=== PATIENT | female | born 1995 | race American Indian/Alaskan Native ===

== ENCOUNTER 2020-09-28 10:29 | Emergency (ER) | payer SELFPAY ==
[2020-09-28 11:39] VITALS: BP 106/67
[2020-09-28 14:09] LABS: Bilirubin,Urine NEG (Negative); Blood,Urine NEG (Negative); Color,Urine Amber (Yellow); Mucus,Urine 3+ /HPF
[2020-09-28 14:22] LABS: HCG Qualitative,Urine Positive (Negative)
== END 2020-09-28 11:40 | disposition left against medical advice (07) ==
LOC: ED 10:29
DX: Z32.00 Encounter for pregnancy test, result unknown (principal); Z53.21 Procedure and treatment not carried out due to patient leaving prior to being seen by health care provider
CPT/HCPCS: 81001; 81025

== ENCOUNTER 2020-12-09 12:06 | Inpatient (IN) | payer OTHER ==
[2020-12-09] MEDS ORDERED: LACTATED RINGERS 1,000 ML ONE (12:15)
[2020-12-09] MEDS ORDERED: LACTATED RINGERS 500 ML IV ONE (12:23)
[2020-12-09 12:58] LABS: Basophils # (Auto) 0.2 K/mm3 (0.0-0.1); Basophils % (Auto) 1.7 % (0.0-1.8); Eosinophils % (Auto) 0.4 % (0.0-4.3); Hematocrit 37.3 % (30.3-42.9); Hemoglobin 12.5 gm/dl (10.1-14.3); Lymphocytes # (Auto) 2.3 K/mm3 (1.2-5.4); Lymphocytes % (Auto) 19.8 % (13.4-35.0); Mean Corpuscular HGB Conc 34 % (30-34); Mean Corpuscular Volume 85 fl (79-97); Monocytes # (Auto) 0.9 K/mm3 (0.0-0.8); Platelet Count 395 K/mm3 (140-440); Red Blood Count 4.42 M/mm3 (3.65-5.03); Red Cell Distribution Width 13.3 % (13.2-15.2)
[2020-12-09] MEDS ORDERED: TERBUTALINE 1 MG/1 ML INJ SUB-Q SCH (13:00)
[2020-12-09] MEDS ORDERED: LIDOCAINE (2%) 20 MG/1 ML VIAL 20 ML MDV INFILTRATI NR (13:12)
[2020-12-09] MEDS ORDERED: fentaNYL 100 MCG/2 ML INJ IV PRN (13:12)
[2020-12-09] MEDS ORDERED: ACETAMINOPHEN 325 MG TAB PO PRN (13:12)
[2020-12-09] MEDS ORDERED: ePHEDrine SULFATE 50 MG/1 ML INJ IV PRN ×2 (13:12→14:41)
[2020-12-09] MEDS ORDERED: miSOPROStol 200 MCG TAB PR PRN (13:12)
[2020-12-09] MEDS ORDERED: METHYLERGONOVINE MALEATE 0.2 MG/ML VIAL IM PRN (13:12)
[2020-12-09] MEDS ORDERED: LOPERAMIDE 2 MG CAP PO PRN (13:12)
[2020-12-09] MEDS ORDERED: BUTORPHANOL 2 MG/1 ML INJ IV PRN (13:12)
[2020-12-09] MEDS ORDERED: OXYTOCIN 10 UNIT/1 ML INJ IM PRN (13:12)
[2020-12-09] MEDS ORDERED: MINERAL OIL 30 ML ORAL LIQD PO PRN (13:12)
[2020-12-09] MEDS ORDERED: CARBOPROST TROMETHAMINE 250 MCG/1 ML INJ IM PRN (13:12)
[2020-12-09] MEDS ORDERED: TERBUTALINE 1 MG/1 ML INJ SUB-Q PRN (13:12)
[2020-12-09] MEDS ORDERED: AMPICILLIN/NS 2 GM/100 ML 2 GM/100 ML BAG IV ONE ×2 (13:23→14:00)
[2020-12-09 13:34] LABS: HCG,Quantitative 43143 mIU/mL (0-4)
[2020-12-09] MEDS ORDERED: OXYTOCIN DRIP 30 UNITS/500 ML BAG IV SCH ×2 (14:00)
[2020-12-09] MEDS ORDERED: ONDANSETRON 4 MG/2 ML INJ IV PRN ×2 (14:41→17:14)
[2020-12-09] MEDS ORDERED: diphenhydrAMINE 50 MG/ML VIAL IV PRN (14:41)
[2020-12-09] MEDS ORDERED: NalbUPHINE 10 MG/1 ML INJ IV PRN (14:41)
[2020-12-09] MEDS ORDERED: NALOXONE 2 MG/2 ML INJ IV PRN (14:41)
[2020-12-09] MEDS ORDERED: fentaNYL-BUPIV 2 MCG/ML-0.125% 200 MCG/100 ML BAG EPIDURAL SCH (15:00)
--- NOTE | 2020-12-09 15:07 | Anesthesia Consultation ---
Anesthesia Consult and Med Hx Date of service: 12/09/20 - Airway Anesthetic Teeth Evaluation: Good ROM Head & Neck: Adequate Mental/Hyoid Distance: Adequate Mallampati Class: Class I Intubation Access Assessment: Good - Pulmonary Exam CTA: Yes - Cardiac Exam Cardiac Exam: RRR - Pre-Operative Health Status ASA Pre-Surgery Classification: ASA2 Proposed Anesthetic Plan: Epidural - Pulmonary Hx Smoking: No Hx Asthma: No COPD: No Hx Pneumonia: No Hx Sleep Apnea: No - Cardiovascular System Hx Hypertension: No Hx Heart Attack/AMI: No Hx Angina: No - Central Nervous System Hx Seizures: No Hx Psychiatric Problems: No - Gastrointestinal Hx Gastroesophageal Reflux Disease: No - Endocrine Hx Renal Disease: No Hx End Stage Renal Disease: No Hx Liver Disease: No Hx Insulin Dependent Diabetes: No Hx Non-Insulin Dependent Diabetes: No Hx Hypothyroidism: No Hx Hyperthyroidism: No - Hematic Hx Anemia: No Hx Sickle Cell Disease: No - Other Systems Hx Alcohol Use: No
--- NOTE | 2020-12-09 15:08 | Progress Note ---
Labor Epidural - Labor Epidural Performed by:: JOSE STANLEY (Jose Prado [facility]) Procedure: Patient is requesting epidural for labor and pain. H&P, labs were reviewed. Patient IDed, H&P reviewed, all questions and concerns were answered, and consent was signed. Timeout was performed at bedside. Patient in sitting position. Sterile prep and drape was performed. 3ml of 1% lidocaine skin wheal at L[3]- L [4]. 18-gauge FClubtead epidural needle was advanced to loss of resistance with air technique 6cm. Negative CSF negative blood. Epidural catheter advanced to [11] centimeters. [negative] Aspiration [negative] test dose. Sterile dressing applied. Patient tolerated procedure.
[2020-12-09] MEDS ORDERED: LACTATED RINGERS 250 ML IV SOLN IV ONE (16:00)
[2020-12-09] MEDS ORDERED: BICITRA ORAL LIQD 30ML ONE (16:24)
[2020-12-09] MEDS ORDERED: METOCLOPRAMIDE 10 MG/2 ML INJ ONE (16:24)
[2020-12-09] MEDS ORDERED: FAMOTIDINE 20 MG/2 ML INJ IV ONE (16:25)
[2020-12-09] MEDS ORDERED: LIDOCAINE 2%/EPINEPHRINE 1:200,000 VIAL (20 ML) INFILTRATI ONE (16:33)
[2020-12-09] MEDS ORDERED: LANOLIN/ZINC/DIMETHICONE (LANSINOH) 7 GM TP PRN (17:14)
[2020-12-09] MEDS ORDERED: KETOROLAC 30 MG/1 ML INJ IV PRN (17:14)
[2020-12-09] MEDS ORDERED: MAGNESIUM HYDROXIDE (MOM) ORAL LIQD UDC PO PRN (17:14)
[2020-12-09] MEDS ORDERED: PROMETHAZINE 25 MG RECT SUPP PR PRN (17:14)
[2020-12-09] MEDS ORDERED: PROMETHAZINE 25 MG TAB PO PRN (17:14)
[2020-12-09] MEDS ORDERED: WITCH HAZEL/ GLYCERIN PAD TP PRN (17:14)
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
--- NOTE | 2020-12-09 17:30 | Procedure Note ---
OB Delivery Note - Delivery Date of Delivery: 12/09/20 Surgeon: SAAR GALLARDO Estimated blood loss: 300cc - Vaginal Delivery position: OA Intrapartum events: none, no care, labor-<37 weeks, PROM->1hr before delivery, meconium Delivery induction: none Delivery monitor: external FHT, external uterine Route of delivery: Delivery placenta: spontaneous, expressed Delivery cord: 3 umbilical vessels Episiotomy: none Delivery laceration: none Anesthesia: epidural - A at 1 minute: 8 at 5 minutes: 9 Infant Gender: Female
[2020-12-09 18:29] LABS: Hemoglobin 12.1 gm/dl (10.1-14.3); Mean Corpuscular HGB Conc 34 % (30-34); Mean Corpuscular Volume 85 fl (79-97); Platelet Count 354 K/mm3 (140-440); Red Blood Count 4.26 M/mm3 (3.65-5.03); Red Cell Distribution Width 13.3 % (13.2-15.2)
[2020-12-09] MEDS: IBUPROFEN 600 MG TAB PO SCH (19:38)
[2020-12-09 20:09] LABS: Bacteria,Urine 2+ /HPF (Negative); Bilirubin,Urine NEG (Negative); Blood,Urine MOD (Negative); Color,Urine Amber (Yellow); Mucus,Urine FEW /HPF
[2020-12-09 20:11] LABS: Amphetamine Screen,Urine Negative; Benzodiazepines Screen,Urine Negative; Cannabinoid Screen,Urine Negative; Cocaine Screen,Urine Negative; Methadone Screen,Urine Negative; Opiate Screen,Urine Negative
[2020-12-09 20:12] LABS: WBC,Urine < 100.0 /HPF (0.0-6.0)
[2020-12-09] MEDS ORDERED: MAGNESIUM SULFATE 4 GM/100 ML BAG IV ONE (21:05)
[2020-12-09] MEDS: LACTATED RINGERS 1,000 ML IV SCH (21:43)
[2020-12-09] MEDS ORDERED: MAGNESIUM SULFATE 40GM/1000ML 40 GM/1,000 ML BAG IV SCH (22:00)
[2020-12-09] MEDS: HYDROcodone/ACETAMINOPHEN 5-325 MG TAB PO PRN (22:10)
[2020-12-10] MEDS: IBUPROFEN 600 MG TAB PO SCH ×4 (00:35→21:14)
[2020-12-10 04:24] LABS: Hematocrit 32.9 % (30.3-42.9); Hemoglobin 11.2 gm/dl (10.1-14.3)
[2020-12-10] MEDS: HYDROcodone/ACETAMINOPHEN 5-325 MG TAB PO PRN (06:46)
[2020-12-10] MEDS: LACTATED RINGERS 1,000 ML IV SCH (06:47)
[2020-12-10] MEDS: PRENATAL VIT27-FE FUMARATE-FOLIC ACID VIT TAB PO SCH (09:47)
--- NOTE | 2020-12-10 12:13 | Post Anesthesia Evaluation ---
- Post Anesthesia Evaluation Patient Participated: Yes Airway Patent: Yes Stable Respiratory Function: Yes Nausea/Vomiting: No Temp > 96.8F: Yes Pain Manageable: Yes Adequeate Hydration: Yes Anesthesia Complications: No Block Receding Appropriately: Yes Patient on Ventilator: No
--- NOTE | 2020-12-10 13:53 | Progress Note ---
Assessment and Plan - Patient Problems (1) No care in current Current Visit: Yes Status: Acute (2) Active labor Current Visit: Yes Status: Acute Qualifiers: Fetus number: single or unspecified fetus Qualified Code(s): O60.10X0 - labor with delivery, unspecified trimester, not applicable or unspecified (3) Status post vaginal delivery Current Visit: Yes Status: Acute (4) Labile blood pressure Current Visit: Yes Status: Acute Plan to address problem: MgSO4 protocol to run its course. Otherwise stable. Subjective - Subjective Date of service: 12/10/20 Principal diagnosis: Status post day 1 Interval history: Active and painful contractions. g2, P0. 35+ wks. Patient reports: appetite normal, pain well controlled, other (Under MgSO4 protocol for labile BPsfollowing delivery.) : doing well, in NICU Objective - Vital Signs Latest vital signs: Vital Signs Temp Pulse Resp BP BP Pulse Ox Pulse Ox 12/10/20 13:49 62 99 12/10/20 13:47 65 141/72 12/10/20 13:44 64 99 12/10/20 13:39 60 99 12/10/20 13:34 59 L 99 12/10/20 13:29 60 99 12/10/20 13:24 62 99 12/10/20 13:19 60 99 12/10/20 13:17 58 L 132/66 12/10/20 13:14 62 99 12/10/20 13:09 59 L 99 12/10/20 13:04 59 L 99 12/10/20 12:59 58 L 99 12/10/20 12:54 69 100 12/10/20 12:49 61 99 12/10/20 12:47 60 147/83 12/10/20 12:44 58 L 99 12/10/20 12:39 67 100 12/10/20 12:34 63 100 12/10/20 12:29 55 L 99 12/10/20 12:24 58 L 98 12/10/20 12:19 74 98 12/10/20 12:17 65 134/85 12/10/20 12:14 60 99 12/10/20 12:09 60 99 12/10/20 12:04 58 L 99 12/10/20 11:59 59 L 99 12/10/20 11:54 54 L 99 12/10/20 11:49 59 L 99 12/10/20 11:47 57 L 128/86 12/10/20 11:44 59 L 99 12/10/20 11:39 60 99 12/10/20 11:37 71 127/90 12/10/20 11:34 60 98 12/10/20 11:29 65 98 12/10/20 11:24 60 99 12/10/20 11:19 60 99 12/10/20 11:17 55 L 150/89 12/10/20 11:14 58 L 99 12/10/20 11:09 60 99 12/10/20 11:04 54 L 99 12/10/20 10:59 53 L 99 12/10/20 10:54 58 L 97 12/10/20 10:49 55 L 98 12/10/20 10:47 54 L 133/80 12/10/20 10:44 59 L 98 12/10/20 10:39 57 L 98 12/10/20 10:34 64 99 12/10/20 10:29 71 99 12/10/20 10:24 64 100 12/10/20 10:19 62 98 12/10/20 10:17 54 L 135/93 12/10/20 10:14 57 L 100 12/10/20 10:09 56 L 99 12/10/20 10:04 76 98 12/10/20 09:59 83 98 12/10/20 09:58 100 12/10/20 09:54 54 L 99 12/10/20 09:52 97.6 F 56 L 12 126/83 99 12/10/20 09:49 78 100 12/10/20 09:47 54 L 126/83 12/10/20 09:46 65 126/83 12/10/20 09:44 61 97 12/10/20 09:39 60 100 12/10/20 09:34 55 L 98 12/10/20 09:29 52 L 98 12/10/20 09:24 55 L 99 12/10/20 09:19 58 L 100 12/10/20 09:14 60 99 12/10/20 09:09 54 L 99 12/10/20 09:04 62 99 12/10/20 08:59 60 98 12/10/20 08:54 62 98 12/10/20 08:52 51 L 136/73 12/10/20 08:49 55 L 97 12/10/20 08:44 54 L 99 12/10/20 08:39 53 L 98 12/10/20 08:34 48 L 118/66 98 12/10/20 08:29 61 99 12/10/20 08:24 57 L 99 12/10/20 08:19 54 L 98 12/10/20 08:14 61 98 12/10/20 08:09 60 98 12/10/20 08:04 52 L 131/64 99 12/10/20 07:59 63 99 12/10/20 07:54 60 98 12/10/20 07:49 63 99 12/10/20 07:44 58 L 99 12/10/20 07:39 62 98 12/10/20 07:34 54 L 140/63 99 12/10/20 07:29 60 99 12/10/20 07:24 58 L 99 12/10/20 07:19 61 98 12/10/20 07:14 61 98 12/10/20 07:09 65 98 12/10/20 07:04 55 L 116/65 99 12/10/20 06:59 59 L 99 12/10/20 06:54 61 99 12/10/20 06:49 70 100 12/10/20 06:44 58 L 98 12/10/20 06:39 67 100 12/10/20 06:34 75 142/89 99 12/10/20 06:29 76 99 12/10/20 06:24 68 99 12/10/20 06:19 59 L 98 12/10/20 06:14 62 98 12/10/20 06:09 64 98 12/10/20 06:04 60 132/76 97 12/10/20 05:59 76 98 12/10/20 05:54 63 97 12/10/20 05:49 62 98 12/10/20 05:44 57 L 98 12/10/20 05:39 57 L 97 12/10/20 05:34 59 L 133/82 94 12/10/20 05:29 62 99 12/10/20 05:24 62 97 12/10/20 05:19 71 97 12/10/20 05:14 69 98 12/10/20 05:09 65 98 12/10/20 05:04 55 L 119/70 98 12/10/20 04:59 63 97 12/10/20 04:54 62 97 12/10/20 04:49 58 L 97 12/10/20 04:44 60 97 12/10/20 04:39 55 L 98 12/10/20 04:34 51 L 134/73 98 12/10/20 04:29 58 L 100 12/10/20 04:24 56 L 99 12/10/20 04:19 54 L 99 12/10/20 04:14 58 L 98 12/10/20 04:09 57 L 98 12/10/20 04:04 67 137/76 97 12/10/20 03:59 64 97 12/10/20 03:54 67 97 12/10/20 03:49 66 98 12/10/20 03:44 68 98 12/10/20 03:39 60 98 12/10/20 03:35 62 151/77 12/10/20 03:34 62 98 12/10/20 03:29 63 98 12/10/20 03:24 68 97 12/10/20 03:19 64 98 12/10/20 03:14 63 98 12/10/20 03:09 57 L 99 12/10/20 03:04 63 147/85 99 12/10/20 02:59 77 98 12/10/20 02:57 20 12/10/20 02:54 69 99 12/10/20 02:49 78 98 12/10/20 02:44 61 97 12/10/20 02:39 61 97 12/10/20 02:34 54 L 140/77 92 12/10/20 02:29 56 L 97 12/10/20 02:24 61 98 12/10/20 02:19 57 L 97 12/10/20 02:14 61 98 12/10/20 02:09 57 L 98 12/10/20 02:04 55 L 131/75 94 12/10/20 01:59 59 L 98 12/10/20 01:54 58 L 97 12/10/20 01:49 54 L 98 12/10/20 01:44 53 L 97 12/10/20 01:39 65 99 12/10/20 01:34 58 L 128/75 93 12/10/20 01:29 58 L 97 12/10/20 01:24 60 97 12/10/20 01:19 59 L 98 12/10/20 01:14 60 97 12/10/20 01:09 57 L 98 12/10/20 01:04 54 L 133/73 93 12/10/20 00:59 58 L 98 12/10/20 00:54 59 L 97 12/10/20 00:49 52 L 98 12/10/20 00:44 55 L 97 12/10/20 00:39 60 98 12/10/20 00:34 55 L 135/71 97 12/10/20 00:29 63 97 12/10/20 00:24 60 97 12/10/20 00:19 61 97 12/10/20 00:14 62 97 12/10/20 00:09 56 L 98 12/10/20 00:04 54 L 127/70 94 12/10/20 00:00 98.7 F 18 12/09/20 23:59 59 L 98 12/09/20 23:54 60 98 12/09/20 23:49 63 98 12/09/20 23:44 60 99 12/09/20 23:39 63 98 12/09/20 23:34 68 123/84 99 12/09/20 23:29 59 L 99 12/09/20 23:24 58 L 99 12/09/20 23:19 64 98 12/09/20 23:14 56 L 100 12/09/20 23:09 69 99 12/09/20 23:04 69 131/78 98 12/09/20 22:59 62 98 12/09/20 22:54 64 98 12/09/20 22:49 73 98 12/09/20 22:44 70 98 12/09/20 22:39 65 97 12/09/20 22:34 66 97 12/09/20 22:32 71 121/78 12/09/20 22:29 65 99 12/09/20 22:24 61 97 12/09/20 22:19 59 L 98 12/09/20 22:17 63 129/76 12/09/20 22:14 60 98 12/09/20 22:10 20 12/09/20 22:09 66 98 12/09/20 22:04 73 97 12/09/20 22:03 71 161/67 12/09/20 22:02 72 94 12/09/20 21:59 106 H 98 12/09/20 21:54 64 98 12/09/20 21:49 63 98 12/09/20 21:47 57 L 141/87 12/09/20 21:44 54 L 98 12/09/20 21:39 57 L 98 12/09/20 21:34 53 L 98 12/09/20 21:32 49 L 150/92 12/09/20 21:29 56 L 98 12/09/20 21:24 53 L 99 12/09/20 21:19 52 L 99 12/09/20 21:17 53 L 149/94 12/09/20 21:14 58 L 98 12/09/20 21:09 57 L 98 12/09/20 21:04 53 L 98 12/09/20 21:02 52 L 147/89 12/09/20 20:59 58 L 97 12/09/20 20:54 55 L 98 12/09/20 20:49 53 L 98 12/09/20 20:47 52 L 145/90 12/09/20 20:44 50 L 99 12/09/20 20:39 68 98 12/09/20 20:34 57 L 98 12/09/20 20:32 58 L 140/83 12/09/20 20:29 57 L 98 12/09/20 20:24 57 L 98 12/09/20 20:19 61 98 12/09/20 20:17 53 L 148/85 12/09/20 20:14 59 L 98 12/09/20 20:09 54 L 99 12/09/20 20:04 51 L 98 12/09/20 20:02 50 L 161/86 12/09/20 19:59 49 L 99 12/09/20 19:54 50 L 99 12/09/20 19:49 48 L 100 12/09/20 19:47 48 L 171/87 12/09/20 19:44 55 L 100 12/09/20 19:40 98.6 F 20 12/09/20 19:39 60 160/90 99 100 12/09/20 19:38 20 12/09/20 19:34 50 L 98 12/09/20 19:32 47 L 160/94 12/09/20 19:29 47 L 100 12/09/20 19:24 49 L 98 12/09/20 19:19 49 L 99 12/09/20 19:17 48 L 170/92 12/09/20 19:14 52 L 99 12/09/20 19:09 52 L 99 12/09/20 19:04 48 L 99 12/09/20 19:03 46 L 156/101 12/09/20 18:59 48 L 100 12/09/20 18:54 51 L 99 12/09/20 18:49 51 L 99 12/09/20 18:47 53 L 144/92 12/09/20 18:44 48 L 99 12/09/20 18:39 50 L 99 12/09/20 18:34 51 L 98 12/09/20 18:32 47 L 146/87 12/09/20 18:29 53 L 99 12/09/20 18:24 50 L 99 12/09/20 18:19 50 L 100 12/09/20 18:17 48 L 156/88 12/09/20 18:14 52 L 100 12/09/20 18:13 51 L 156/89 12/09/20 18:09 50 L 100 12/09/20 18:04 54 L 98 12/09/20 17:59 48 L 100 12/09/20 17:54 51 L 100 12/09/20 17:49 52 L 100 12/09/20 17:47 52 L 150/98 12/09/20 17:44 56 L 99 12/09/20 17:39 60 99 12/09/20 17:35 62 150/98 12/09/20 17:34 61 92 12/09/20 17:32 60 150/102 12/09/20 17:29 56 L 97 12/09/20 17:24 59 L 143/89 100 12/09/20 17:19 86 87 12/09/20 17:14 79 99 12/09/20 17:09 61 100 12/09/20 17:04 79 100 12/09/20 17:02 142/89 12/09/20 16:59 85 100 12/09/20 16:54 54 L 100 12/09/20 16:49 56 L 100 12/09/20 16:47 47 L 148/89 12/09/20 16:46 59 L 144/86 12/09/20 16:44 55 L 100 12/09/20 16:39 52 L 100 12/09/20 16:34 69 205/105 70 L 12/09/20 16:33 66 83 L 12/09/20 16:29 61 100 12/09/20 16:24 67 100 12/09/20 16:19 68 99 12/09/20 16:17 70 136/83 12/09/20 16:14 74 99 12/09/20 16:09 65 99 12/09/20 16:04 66 100 12/09/20 16:02 65 123/79 12/09/20 15:59 69 98 12/09/20 15:54 74 99 12/09/20 15:49 66 100 12/09/20 15:48 59 L 114/70 12/09/20 15:44 63 100 12/09/20 15:39 64 100 12/09/20 15:34 63 98 12/09/20 15:32 56 L 116/73 12/09/20 15:29 70 99 12/09/20 15:28 69 122/82 12/09/20 15:24 68 100 12/09/20 15:22 64 125/76 12/09/20 15:19 67 98 12/09/20 15:18 66 129/83 12/09/20 15:14 83 100 12/09/20 15:11 83 144/86 12/09/20 15:09 87 100 12/09/20 15:04 103 H 98 12/09/20 14:59 86 100 12/09/20 14:54 95 H 99 12/09/20 14:49 92 H 100 12/09/20 14:48 87 94 12/09/20 14:44 89 98 12/09/20 14:39 114 H 98 12/09/20 14:34 91 H 98 12/09/20 14:32 78 94 12/09/20 14:29 85 97 12/09/20 14:24 85 98 12/09/20 14:19 84 98 12/09/20 14:14 108 H 95 12/09/20 14:09 89 98 12/09/20 14:06 97 12/09/20 14:04 113 H 99 12/09/20 13:59 87 99 12/09/20 13:54 108 H 98 Intake and Output 12/09/20 12/10/20 12/10/20 23:59 07:59 15:59 Intake Total 120 1026.667 Output Total 1700 820 Balance 120 -673.333 -820 Intake: IV 906.667 Lactated Ringers 1,000 ml 906.667 @ 125 mls/hr IV DIRECT BAR Rx#:[id number] Intake, Free Water 120 120 Output: Urine 1700 820 Indwelling Catheter 1700 820 Other: Total, Output Amount 600 200 - Exam Lungs: Present: Normal air movement Abdomen: Present: normal appearance Uterus: Present: normal, firm Extremities: Present: normal Deep Tendon Reflex Grade: Dull/Diminished +1 - Labs Labs: Abnormal lab results 12/09/20 12/09/20 12/10/20 Range/Units 18:02 Unknown 04:11 WBC 11.4 H (4.5-11.0) K/mm3 Magnesium 4.70 H (1.7-2.3) mg/dL Urine WBC (Auto) < 100.0 H (0.0-6.0) /HPF 12/10/20 Range/Units 10:04 WBC (4.5-11.0) K/mm3 Magnesium 5.20 H (1.7-2.3) mg/dL Urine WBC (Auto) (0.0-6.0) /HPF
[2020-12-10 16:55] LABS: Basophils % (Auto) 0.1 % (0.0-1.8); Eosinophils % (Auto) 0.4 % (0.0-4.3); Hemoglobin 10.3 gm/dl (10.1-14.3); Lymphocytes # (Auto) 2.3 K/mm3 (1.2-5.4); Mean Corpuscular HGB Conc 33 % (30-34); Mean Corpuscular Volume 85 fl (79-97); Monocytes # (Auto) 0.9 K/mm3 (0.0-0.8); Monocytes % (Auto) 6.9 % (0.0-7.3); Platelet Count 364 K/mm3 (140-440); Red Blood Count 3.65 M/mm3 (3.65-5.03); Red Cell Distribution Width 12.9 % (13.2-15.2)
[2020-12-10 17:51] LABS: Alanine Aminotransferase 7 units/L (7-56); Albumin 2.3 g/dL (3.9-5); Blood Urea Nitrogen 8 mg/dL (7-17); Calcium 7.4 mg/dL (8.4-10.2); Hemolysis Index 0
[2020-12-10 17:52] LABS: BUN/Creatinine Ratio 11
[2020-12-10] MEDS ORDERED: ZOLPIDEM 5 MG TAB PO ONE (22:37)
[2020-12-11] MEDS: HYDROcodone/ACETAMINOPHEN 5-325 MG TAB PO PRN ×2 (03:13→08:29)
[2020-12-11] MEDS: IBUPROFEN 600 MG TAB PO SCH ×3 (06:44→13:01)
--- NOTE | 2020-12-11 10:37 | Progress Note ---
Assessment and Plan - Patient Problems (1) No care in current Current Visit: Yes Status: Acute (2) Active labor Current Visit: Yes Status: Acute Qualifiers: Fetus number: single or unspecified fetus Qualified Code(s): O60.10X0 - labor with delivery, unspecified trimester, not applicable or unspecified (3) Status post vaginal delivery Current Visit: Yes Status: Acute Plan to address problem: Doing well. Stable. (4) Labile blood pressure Current Visit: Yes Status: Acute Plan to address problem: Labetalol withheld due to bradycardia. Subjective - Subjective Date of service: 12/11/20 Principal diagnosis: Status post day 2 Interval history: Active and painful contractions. g2, P0. 35+ wks. 12/11/20. Doing very well and requesting to be allowed to go home. Patient reports: appetite normal, voiding normally, pain well controlled, ambulating normally : doing well Objective - Vital Signs Latest vital signs: Vital Signs Temp Pulse Resp BP BP BP Pulse Ox 12/11/20 07:50 98.4 F 46 L 18 144/68 12/11/20 07:45 12/11/20 06:43 12/11/20 05:22 97.3 F L 44 L 20 142/79 96 12/11/20 03:10 12/11/20 02:20 12/11/20 02:02 97.6 F 54 L 18 131/63 98 12/11/20 00:10 12/10/20 22:40 12/10/20 22:06 58 L 150/91 12/10/20 22:05 98.3 F 58 L 18 150/91 98 12/10/20 20:49 48 L 144/84 12/10/20 20:47 52 L 172/88 12/10/20 20:17 51 L 135/84 12/10/20 20:00 12/10/20 19:47 50 L 136/82 12/10/20 19:21 46 L 126/68 12/10/20 19:18 40 L 0 L 12/10/20 18:59 53 L 142/87 89 12/10/20 18:49 48 L 92 12/10/20 18:47 59 L 136/87 12/10/20 18:43 86 12/10/20 18:40 35 L 88 12/10/20 18:37 86 12/10/20 18:34 51 L 88 12/10/20 18:31 61 88 12/10/20 18:29 64 99 12/10/20 18:27 98.1 F 76 14 131/82 131/82 99 12/10/20 18:24 83 98 12/10/20 18:20 60 92 12/10/20 18:19 65 100 12/10/20 18:17 59 L 141/69 12/10/20 18:14 57 L 100 12/10/20 18:09 61 100 12/10/20 18:04 58 L 100 12/10/20 17:59 62 100 12/10/20 17:54 64 99 12/10/20 17:49 65 99 12/10/20 17:47 63 156/95 12/10/20 17:44 67 98 12/10/20 17:39 59 L 98 12/10/20 17:34 60 100 12/10/20 17:29 62 100 12/10/20 17:24 60 100 12/10/20 17:19 62 98 12/10/20 17:17 65 139/85 12/10/20 17:14 67 100 12/10/20 17:09 62 99 12/10/20 17:04 58 L 100 12/10/20 16:59 64 99 12/10/20 16:54 62 100 12/10/20 16:49 61 99 12/10/20 16:47 61 138/76 12/10/20 16:44 60 98 12/10/20 16:39 63 99 12/10/20 16:34 58 L 98 12/10/20 16:29 63 98 12/10/20 16:24 64 98 12/10/20 16:21 122 H 93 12/10/20 16:19 65 95 12/10/20 16:17 58 L 125/76 12/10/20 16:12 67 91 12/10/20 16:10 60 98 12/10/20 16:05 57 L 99 12/10/20 16:00 64 99 12/10/20 15:55 73 100 12/10/20 15:50 65 98 12/10/20 15:47 62 126/77 12/10/20 15:45 69 98 12/10/20 15:40 59 L 99 12/10/20 15:35 62 100 12/10/20 15:30 64 99 12/10/20 15:25 61 98 12/10/20 15:20 61 98 12/10/20 15:17 58 L 127/82 12/10/20 15:15 58 L 98 12/10/20 15:11 97.9 F 57 L 14 130/81 130/81 98 12/10/20 15:10 54 L 98 12/10/20 14:57 101 H 77 L 12/10/20 14:54 68 99 12/10/20 14:49 63 98 12/10/20 14:47 61 135/85 12/10/20 14:44 61 98 12/10/20 14:39 84 100 12/10/20 14:34 71 99 12/10/20 14:29 63 99 12/10/20 14:24 61 98 12/10/20 14:19 78 99 12/10/20 14:17 62 135/80 94 12/10/20 14:14 68 98 12/10/20 14:09 58 L 100 12/10/20 14:04 70 99 12/10/20 13:59 68 99 12/10/20 13:54 68 99 12/10/20 13:49 62 99 12/10/20 13:47 65 141/72 12/10/20 13:44 64 99 12/10/20 13:39 60 99 12/10/20 13:34 59 L 99 12/10/20 13:29 60 99 12/10/20 13:24 62 99 12/10/20 13:19 60 99 12/10/20 13:17 58 L 132/66 12/10/20 13:14 62 99 12/10/20 13:09 59 L 99 12/10/20 13:04 59 L 99 12/10/20 12:59 58 L 99 12/10/20 12:54 69 100 12/10/20 12:49 61 99 12/10/20 12:47 60 147/83 12/10/20 12:44 58 L 99 12/10/20 12:39 67 100 12/10/20 12:34 63 100 12/10/20 12:29 55 L 99 12/10/20 12:24 58 L 98 12/10/20 12:19 74 98 12/10/20 12:17 65 134/85 12/10/20 12:14 60 99 12/10/20 12:09 60 99 12/10/20 12:04 58 L 99 12/10/20 11:59 59 L 99 12/10/20 11:54 54 L 99 12/10/20 11:49 59 L 99 12/10/20 11:47 57 L 128/86 12/10/20 11:44 59 L 99 12/10/20 11:39 60 99 12/10/20 11:37 71 127/90 12/10/20 11:34 60 98 12/10/20 11:29 65 98 12/10/20 11:24 60 99 12/10/20 11:19 60 99 12/10/20 11:17 55 L 150/89 12/10/20 11:14 58 L 99 12/10/20 11:09 60 99 12/10/20 11:04 54 L 99 12/10/20 10:59 53 L 99 12/10/20 10:54 58 L 97 12/10/20 10:49 55 L 98 12/10/20 10:47 54 L 133/80 12/10/20 10:44 59 L 98 12/10/20 10:39 57 L 98 12/10/20 10:34 64 99 Pulse Ox 12/11/20 07:50 12/11/20 07:45 100 12/11/20 06:43 98 12/11/20 05:22 12/11/20 03:10 98 12/11/20 02:20 98 12/11/20 02:02 12/11/20 00:10 97 12/10/20 22:40 98 12/10/20 22:06 12/10/20 22:05 98 12/10/20 20:49 12/10/20 20:47 12/10/20 20:17 12/10/20 20:00 100 12/10/20 19:47 12/10/20 19:21 12/10/20 19:18 12/10/20 18:59 12/10/20 18:49 12/10/20 18:47 12/10/20 18:43 12/10/20 18:40 12/10/20 18:37 12/10/20 18:34 12/10/20 18:31 12/10/20 18:29 12/10/20 18:27 12/10/20 18:24 12/10/20 18:20 12/10/20 18:19 12/10/20 18:17 12/10/20 18:14 12/10/20 18:09 12/10/20 18:04 12/10/20 17:59 12/10/20 17:54 12/10/20 17:49 12/10/20 17:47 12/10/20 17:44 12/10/20 17:39 12/10/20 17:34 12/10/20 17:29 12/10/20 17:24 12/10/20 17:19 12/10/20 17:17 12/10/20 17:14 12/10/20 17:09 12/10/20 17:04 12/10/20 16:59 12/10/20 16:54 12/10/20 16:49 12/10/20 16:47 12/10/20 16:44 12/10/20 16:39 12/10/20 16:34 12/10/20 16:29 12/10/20 16:24 12/10/20 16:21 12/10/20 16:19 12/10/20 16:17 12/10/20 16:12 12/10/20 16:10 12/10/20 16:05 12/10/20 16:00 12/10/20 15:55 12/10/20 15:50 12/10/20 15:47 12/10/20 15:45 12/10/20 15:40 12/10/20 15:35 12/10/20 15:30 12/10/20 15:25 12/10/20 15:20 12/10/20 15:17 12/10/20 15:15 12/10/20 15:11 12/10/20 15:10 12/10/20 14:57 12/10/20 14:54 12/10/20 14:49 12/10/20 14:47 12/10/20 14:44 12/10/20 14:39 12/10/20 14:34 12/10/20 14:29 12/10/20 14:24 12/10/20 14:19 12/10/20 14:17 12/10/20 14:14 12/10/20 14:09 12/10/20 14:04 12/10/20 13:59 12/10/20 13:54 12/10/20 13:49 12/10/20 13:47 12/10/20 13:44 12/10/20 13:39 12/10/20 13:34 12/10/20 13:29 12/10/20 13:24 12/10/20 13:19 12/10/20 13:17 12/10/20 13:14 12/10/20 13:09 12/10/20 13:04 12/10/20 12:59 12/10/20 12:54 12/10/20 12:49 12/10/20 12:47 12/10/20 12:44 12/10/20 12:39 12/10/20 12:34 12/10/20 12:29 12/10/20 12:24 12/10/20 12:19 12/10/20 12:17 12/10/20 12:14 12/10/20 12:09 12/10/20 12:04 12/10/20 11:59 12/10/20 11:54 12/10/20 11:49 12/10/20 11:47 12/10/20 11:44 12/10/20 11:39 12/10/20 11:37 12/10/20 11:34 12/10/20 11:29 12/10/20 11:24 12/10/20 11:19 12/10/20 11:17 12/10/20 11:14 12/10/20 11:09 12/10/20 11:04 12/10/20 10:59 12/10/20 10:54 12/10/20 10:49 12/10/20 10:47 12/10/20 10:44 12/10/20 10:39 12/10/20 10:34 Intake and Output 12/10/20 12/11/20 12/11/20 23:59 07:59 15:59 Intake Total 463.333 720 Output Total 320 300 Balance 143.333 420 Intake: IV 463.333 MAGNESIUM SULFATE 40GM/ 463.333 1000ML 40 gm In 1,000 ml @ 1 GM/HR 25 mls/hr IV DIRECT BAR Rx#:[id number] Oral 120 Intake, Free Water 600 Output: Urine 320 300 Indwelling Catheter 320 Void 300 Other: Total, Intake Amount 120 Total, Output Amount 240 300 # Voids Void 1 - Exam Breasts: Present: deferred Lungs: Present: Normal air movement Abdomen: Present: soft Uterus: Present: normal, firm Extremities: Present: normal Deep Tendon Reflex Grade: Normal +2 - Labs Labs: Abnormal lab results 12/10/20 12/10/20 12/10/20 Range/Units 10:04 15:59 16:45 WBC 12.6 H (4.5-11.0) K/mm3 RDW 12.9 L (13.2-15.2) % [place] # (Auto) 0.9 H (0.0-0.8) K/mm3 Seg Neutrophils % 74.6 H (40.0-70.0) % Seg Neutrophils # 9.4 H (1.8-7.7) K/mm3 Sodium (137-145) mmol/L Carbon Dioxide (22-30) mmol/L Calcium (8.4-10.2) mg/dL Magnesium 5.20 H 5.00 H (1.7-2.3) mg/dL Total Protein (6.3-8.2) g/dL Albumin (3.9-5) g/dL 12/10/20 Range/Units 16:45 WBC (4.5-11.0) K/mm3 RDW (13.2-15.2) % [place] # (Auto) (0.0-0.8) K/mm3 Seg Neutrophils % (40.0-70.0) % Seg Neutrophils # (1.8-7.7) K/mm3 Sodium 135 L (137-145) mmol/L Carbon Dioxide 21 L (22-30) mmol/L Calcium 7.4 L (8.4-10.2) mg/dL Magnesium (1.7-2.3) mg/dL Total Protein 5.6 L (6.3-8.2) g/dL Albumin 2.3 L (3.9-5) g/dL
--- NOTE | 2020-12-11 10:43 | Discharge Summary ---
Providers - Providers Date of Admission: 12/09/20 17:14 Date of discharge: 12/11/20 Attending physician: SARA GALLARDO MD 12/11/20 07:46 Consult to Case Management [CONS] Routine Services Needed at Discharge: Adolescent Counselor Notified:: yes Comment:: No care Primary care physician: BERNARDINO PENA MD Hospitalization Reason for admission: active labor Delivery: Episiotomy: none Laceration: none Other procedures: none complications: none Discharge diagnosis: delivery Condition at discharge: Good Disposition: 01 HOME / SELF CARE / HOMELESS - Discharge Diagnoses (1) No care in current Status: Acute (2) Active labor Status: Resolved Qualifiers: Fetus number: single or unspecified fetus Qualified Code(s): O60.10X0 - labor with delivery, unspecified trimester, not applicable or unspecified (3) Status post vaginal delivery Status: Acute (4) Labile blood pressure Status: Chronic Plan - Provider Discharge Summary Activity: routine, no sex for 6 weeks, no heavy lifting 4 weeks, no strenuous exercise Diet: routine Instructions: routine Additional instructions: [] Smoking cessation referral if applicable(refer to patient education folder for contact #) [] Refer to [facility]'s [facility] Booklet Call your doctor immediately for: * Fever > 100.5 * Heavy vaginal bleeding ( >1 pad per hour) * Severe persistent headache * Shortness of breath * Reddened, hot, painful area to leg or breast * Drainage or odor from incision. * Keep incision clean and dry at all times and follow doctor's instructions regarding bathing/showering Must return to office in 1-2 days for BP check. - Follow up plan Follow up: BERNARDINO PENA MD [Primary Care Provider] - 7 Days
[2020-12-11] MEDS: PRENATAL VIT27-FE FUMARATE-FOLIC ACID VIT TAB PO SCH (11:35)
[2020-12-11 13:08] VITALS: BP 154/76
== END 2020-12-11 14:35 | disposition home or self-care (01) | DRG 775 ==
LOC: TRG 12:06 → APU 12:07 → TRG 13:12 → LD 13:53 → OBSVTOIN 17:14 → OB 12-10 21:30
PROVIDERS: ADMIT Obstetrics & Gynecology; ATTEND Obstetrics & Gynecology
PROC: 10E0XZZ Delivery of Products of Conception, External Approach (ICD-10-PCS; principal; 2020-12-09)
PROC: 3E0R3BZ Introduction of Anesthetic Agent into Spinal Canal, Percutaneous Approach (ICD-10-PCS; 2020-12-09)
PROC: 3E0R33Z Introduction of Anti-inflammatory into Spinal Canal, Percutaneous Approach (ICD-10-PCS; 2020-12-09)
DX: O60.14X0 Preterm labor third trimester with preterm delivery third trimester, not applicable or unspecified (principal); Z37.0 Single live birth; Z3A.35 35 weeks gestation of pregnancy; Z20.822 Contact with and (suspected) exposure to COVID-19; O42.113 Preterm premature rupture of membranes, onset of labor more than 24 hours following rupture, third trimester; O76 Abnormality in fetal heart rate and rhythm complicating labor and delivery; R09.89 Other specified symptoms and signs involving the circulatory and respiratory systems; O77.0 Labor and delivery complicated by meconium in amniotic fluid; O75.89 Other specified complications of labor and delivery
CPT/HCPCS: 36415; 80053; 80307; 81001; 82731; 83735; 84702; 85014; 85018; 85025; 85027; 86592; 86706; 86762; 86850; 86900; 86901; 87076; 87086; 87186; 87806; 88307; G0378; J0290; J1885; J3010; J3475; J7120; U0003